=== PATIENT | male | born 1995 | race Caucasian/White ===

== ENCOUNTER → 2016-10-08 | Outpatient (CLI) | payer OTHER ==
--- NOTE | 2016-10-16 09:04 | REP ---
CT maxillofacial without contrast 10/08/2016 Indication: Chronic maxillary sinusitis Comparison: None Technique: 3 mm contiguous spiral axial sections performed through the nasal sinuses and the orbits without contrast. Coronal reconstructed images in bone algorithm are also provided for interpretation. Axial images are provided in bone and soft-tissue windows Findings: Paranasal sinuses are clear bilaterally. The nasal septum is midline. There is a moderate bony spur on the left side of the nasal septum with mild impression on the left inferior nasal turbinate. The infundibula are narrowed yet patent; nasal frontal ducts are patent bilaterally. The mastoid sinuses are clear Lies portions of the brain without ventriculomegaly mass effect or intracranial hemorrhage. Ocular globes extraocular muscles and optic nerves are symmetric in appearance Impression 1. Moderate left sided mid nasal septal spur. No evidence of nasal septal deviation. 2. Narrowing of the bilateral infundibula, yet patent bilaterally. Nasal frontal ducts are patent. 3. Paranasal sinuses and mastoid sinuses are clear bilaterally Signed by Fanny Martinez MD 10/16/2016 08:56 A
== END | disposition home or self-care (01) ==
LOC: M RAD 06:52
DX: J32.0 Chronic maxillary sinusitis (principal); J34.89 Other specified disorders of nose and nasal sinuses

== ENCOUNTER → 2016-12-25 | Day surgery (SDC) | payer OTHER ==
[~2016-12-25] VITALS: Ht 172.7 cm; Wt 70.3 kg
[~2016-12-25] MED LIST: DOXY-278 PO; DULO30CA PO; GLYCOPYRROLATE INJ 0.2 MG/ML 2 ML VIAL As Ordered ONE; IBUPROFEN 800 MG TAB PO PRN; LIDOCAINE 2% INJ 100 MG/5 ML SDV (FOR ANES.) As Ordered ONE; LIDOCAINE W/EPINEPHRINE 1% 20ML VIAL As Ordered ONE; LR 1,000 ML IV SCH; METHYLENE BLUE 0.5% (5MG/ML) 10 ML AMP (PROVAYBLUE)(Q9968 PER 1MG) As Ordered ONE; MIDAZOLAM INJ 2 MG/2 ML VIAL (J2250) As Ordered ONE; NEOSTIGMINE 1MG/ML 5 ML SYRINGE (J2710) As Ordered ONE; ONDANSETRON 4MG/2ML VIAL (J2405) As Ordered ONE; ONDANSETRON 4MG/2ML VIAL (J2405) IV PRN; OXYC1TAB23 PO; OXYMETAZOLINE NASAL SPRAY (AFRIN) As Ordered ONE; PERCOCET 5MG/325MG TAB As Ordered ONE; PERCOCET 5MG/325MG TAB PO PRN; PROPOFOL 200 MG/20 ML VIAL As Ordered ONE; ROCURONIUM BROMIDE 50 MG/5 ML VIAL As Ordered ONE; dexameTHASONE 4 MG/ML 1ML VIAL (J1100) As Ordered ONE; fentaNYL 100 MCG/2 ML INJECTION (J3010) As Ordered ONE; fentaNYL 100 MCG/2 ML INJECTION (J3010) IV PRN
[2016-12-25 13:35] VITALS: BP 147/65
--- NOTE | 2016-12-28 09:44 | RO ---
DATE OF PROCEDURE: 12/25/2016 PREOPERATIVE DIAGNOSES: 1. Nasal septal deviation. 2. Chronic rhinitis. POSTOPERATIVE DIAGNOSES: 1. Nasal septal deviation. 2. Chronic rhinitis. PROCEDURES: 1. Septoplasty. 2. Partial reduction inferior turbinates. SURGEON: Nura Mcmanus MD SELF PROPELLED HOT MIX ROLLER OPERATOR: ANESTHESIA: INDICATIONS: A 21-year-old with a long history of nasal obstruction and congestion unrelieved by medical therapy. DESCRIPTION OF PROCEDURE: Satisfactory general endotracheal anesthesia was administered, pharyngeal pack placed. Nose was prepared for surgery by placing cotton soaked pledgets with Afrin solution in the nasal cavity bilaterally. 1% xylocaine with 1:100,000 epinephrine was injected into the nasal septum and inferior turbinates. DATE OF PROCEDURE: PREOPERATIVE DIAGNOSES: Nasal obstruction secondary to deviated septum, hypertrophic turbinates. POSTOPERATIVE DIAGNOSES: Nasal obstruction secondary to deviated septum, hypertrophic turbinates. PROCEDURE: Septoplasty, partial reduction inferior turbinates. SURGEON: Dr. Nura Mcmanus SELF PROPELLED HOT MIX ROLLER OPERATOR: ANESTHESIA: General endotracheal. INDICATIONS: DESCRIPTION OF PROCEDURE: Satisfactory general endotracheal anesthesia administered. The nose was prepared for surgery by placing cotton-soaked pledgets with Afrin solution to nasal cavity bilaterally. 1% Xylocaine with 1:100,000 epinephrine was used to inject into the nasal septum and inferior turbinates. A Obed incision was made on the left side of the nose. A mucoperichondrial flap and envelope was created on the left side of the nasal septum and carried down to the junction of the bony and cartilaginous septum. This was then with an elevator, and an envelope was then created on the right side of the septum. A Laney scissors was used to make a cut high in the perpendicular plate in the midportion of the vomer, and a central segment of the bony septum was resected. Next, with the round knife on the Pierce elevator, a strip of cartilage was resected from the floor of the nose, mobilizing the quadrilateral cartilage and creating a swinging door. Then, a central segment of cartilaginous septum was resected, preserving a 1 cm dorsal and caudal strut. Double-action rongeur was used to take down deflected portions of the perpendicular plate, as well. Finally, the maxillary crest spur was taken down after elevating mucoperiosteum off both sides of it with a chisel. A segment of the resected cartilage was morselized and placed back into the septal envelope. The incision was closed using an interrupted #5-0 chromic suture. Then, a #4-0 plain suture was placed in a [id number] fashion through the two leaves of mucoperichondrium to appose them. Next, the inferior turbinates were medially infractured. A #15 blade was used to make an incision on the anterior tip of the inferior turbinate. With a Pierce elevator, a mucoperiosteal tunnel was created on the medial side of the turbinate. Then, the microdebrider with a 2.9 mm blade was inserted into the tunnel, and the underlying turbinate bone was weakened and partially resected using the microdebrider. Then, the turbinate was laterally outfractured. The posteroinferior tip of the turbinate was then cauterized with suction cautery. Completing the surgery, Fajardo splints were placed in the nose and then sewn to the columella with a #2-0 Prolene suture. The pharyngeal pack was removed, the throat was suctioned. The patient was then awakened, extubated, and sent to recovery in satisfactory condition. He will be discharged home with Percocet for pain, doxycycline 100 mg twice a day and he will be seen back in the office in three days for splint removal.
== END | disposition home or self-care (01) ==
LOC: M SDC 08:37
PROVIDERS: ATTEND Specialist
DX: J34.2 Deviated nasal septum (principal); J31.0 Chronic rhinitis; J34.3 Hypertrophy of nasal turbinates; F43.10 Post-traumatic stress disorder, unspecified; Z79.899 Other long term (current) drug therapy
CPT/HCPCS: 30520; 30802; 88300; 88305; J1100; J2250; J2405; J2710; J3010; Q9968

== ENCOUNTER 2016-12-26 12:20 | Emergency (ER) | payer OTHER ==
[~2016-12-26] VITALS: Ht 170.2 cm; Wt 76.2 kg
[~2016-12-26 12:20] MED LIST changes: -DOXY-278 PO; -GLYCOPYRROLATE INJ 0.2 MG/ML 2 ML VIAL As Ordered ONE; -IBUPROFEN 800 MG TAB PO PRN; -LIDOCAINE 2% INJ 100 MG/5 ML SDV (FOR ANES.) As Ordered ONE; -LIDOCAINE W/EPINEPHRINE 1% 20ML VIAL As Ordered ONE; -LR 1,000 ML IV SCH; -METHYLENE BLUE 0.5% (5MG/ML) 10 ML AMP (PROVAYBLUE)(Q9968 PER 1MG) As Ordered ONE; -MIDAZOLAM INJ 2 MG/2 ML VIAL (J2250) As Ordered ONE; -NEOSTIGMINE 1MG/ML 5 ML SYRINGE (J2710) As Ordered ONE; -ONDANSETRON 4MG/2ML VIAL (J2405) As Ordered ONE; -ONDANSETRON 4MG/2ML VIAL (J2405) IV PRN; -OXYC1TAB23 PO; -OXYMETAZOLINE NASAL SPRAY (AFRIN) As Ordered ONE; -PERCOCET 5MG/325MG TAB As Ordered ONE; -PERCOCET 5MG/325MG TAB PO PRN; -PROPOFOL 200 MG/20 ML VIAL As Ordered ONE; -ROCURONIUM BROMIDE 50 MG/5 ML VIAL As Ordered ONE; -dexameTHASONE 4 MG/ML 1ML VIAL (J1100) As Ordered ONE; -fentaNYL 100 MCG/2 ML INJECTION (J3010) As Ordered ONE; -fentaNYL 100 MCG/2 ML INJECTION (J3010) IV PRN
[2016-12-26 12:21] VITALS: BP 155/64
[2016-12-26] MEDS ORDERED: DOXY-278 PO (12:33)
[2016-12-26] MEDS ORDERED: OXYC1TAB23 PO (12:33)
[2016-12-26] MEDS ORDERED: SODIUM CHLORIDE NASAL 0.65% SPRAY BTL (OCEAN) SCH (21:00)
== END 2016-12-26 13:26 | disposition home or self-care (01) ==
LOC: M ED 13:08
DX: Z48.89 Encounter for other specified surgical aftercare (principal)

== ENCOUNTER 2017-05-25 11:38 | Inpatient (IN) | payer OTHER ==
[~2017-05-25] VITALS: Ht 172.7 cm; Wt 77.2 kg
[~2017-05-25 11:38] MED LIST changes: +DOXY-278 PO; +OXYC1TAB23 PO
[2017-05-25] MEDS ORDERED: HYDR1CAP25 PO (11:50)
[2017-05-25] MEDS ORDERED: ZOLP5TAB PO (11:50)
[2017-05-25] MEDS ORDERED: LUNE2TAB23 PO (11:50)
[2017-05-25] MEDS ORDERED: VENL37.598 PO (11:50)
[2017-05-25] MEDS ORDERED: MELA3TAB PO (11:50)
[2017-05-25] MEDS ORDERED: MELO15TA4 PO (11:50)
[2017-05-25 13:34] LABS: MEAN CORPUSCULAR HEMOGLOBIN 32.4 pg (27.0-33.0); MEAN CORPUSCULAR HGB CONC 35.7 g/dl (32.0-36.5); MEAN CORPUSCULAR VOLUME 90.7 fl (80.0-96.0); RED CELL DISTRIBUTION WIDTH 12.9 % (11.5-14.5); WHITE BLOOD COUNT 4.8 K/mm3 (4.0-10.0)
[2017-05-25 13:49] LABS: ALBUMIN 4.2 GM/DL (3.2-5.2); ALBUMIN/GLOBULIN RATIO 1.17 (1.00-1.93); ALKALINE PHOSPHATASE 86 U/L (45-117); ALT/SGPT 61 U/L (12-78); ANION GAP 6 MEQ/L (8-16); AST/SGOT 47 U/L (15-37); BILIRUBIN,DIRECT 0.1 MG/DL (0.0-0.2); BILIRUBIN,TOTAL 0.7 MG/DL (0.2-1.0); BLOOD UREA NITROGEN 13 MG/DL (7-18); CALCIUM LEVEL 9.4 MG/DL (8.5-10.1); CARBON DIOXIDE LEVEL 25 MEQ/L (21-32); CHLORIDE LEVEL 109 MEQ/L (98-107); CREATININE FOR GFR 1.23 MG/DL (0.70-1.30); GLOMERULAR FILTRATION RATE > 60.0 (>60); GLUCOSE, FASTING 98 MG/DL (70-105); POTASSIUM SERUM 4.4 MEQ/L (3.5-5.1); SODIUM LEVEL 140 MEQ/L (136-145); TOTAL PROTEIN 7.8 GM/DL (6.4-8.2)
[2017-05-25 13:53] LABS: METHADONE URINE NEGATIVE (NEGATIVE)
[2017-05-25] MEDS ORDERED: REFR0.1D OU (15:04)
[2017-05-25] MEDS ORDERED: FLUT1SPR2 (15:04)
[2017-05-25] MEDS ORDERED: MAALOX 30 ML SUSP *UDC PO PRN ×2 (15:30→17:30)
[2017-05-25] MEDS ORDERED: MOM 30ML SUSPENSION UDC PO PRN ×2 (15:30→17:30)
[2017-05-25] MEDS ORDERED: ACETAMINOPHEN TAB 650MG DOSE (2X325MG) PO PRN ×2 (15:30→17:30)
[2017-05-25 16:40] VITALS: BP 147/85
[2017-05-25] MEDS ORDERED: FLUTICASONE PROP 0.05% NASAL SPRAY 16 GM (FLONASE) PRN (17:30)
[2017-05-25] MEDS ORDERED: POLYVINYL ALCOHOL OPHTH SOLN 15 ML(LIQUITEARS) OU PRN (17:30)
[2017-05-26 06:55] VITALS: BP 132/73
[2017-05-26] MEDS ORDERED: VENLAFAXINE **XR** 37.5 MG CAPSULE PO SCH (09:00)
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
--- NOTE | 2017-05-26 15:46 | HPE ---
DATE OF ADMISSION: 05/25/2017 HISTORY OF PRESENT ILLNESS: Please refer to the psychiatric history and evaluation for further details on this admission. This examination and history is intended for medical issues which may need treatment, followup or consultation on this 22-year-old male. PRIMARY CARE PROVIDER: Isidro Johnson. ALLERGIES: No known allergies. SOCIAL HISTORY: He is . 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 EtOH: None. He smokes. Recreational drug use: None. PAST MEDICAL HISTORY: Chronic back, shoulder and knee pain. PAST SURGICAL HISTORY: [place] teeth extraction, septoplasty. FAMILY HISTORY: Noncontributory. HOME MEDICATIONS: - Refresh one drop in each eye daily - hydroxyzine pamoate 25 mg by mouth at bedtime - meloxicam 15 mg by mouth daily - Lunesta 2 mg by mouth at bedtime - fluticasone two sprays nares twice a day - venlafaxine 37.5 mg by mouth daily Continue meloxicam for chronic back and knee pain. No other acute medical issues.
[2017-05-26 18:00] VITALS: BP 120/82
[2017-05-26] MEDS: traZODone 50 MG TAB PO PRN (21:22)
[2017-05-26] MEDS: PRAZOSIN 1 MG CAP PO SCH (21:22)
[2017-05-27 06:13] VITALS: BP 133/68
[2017-05-27 07:58] LABS: ALBUMIN 4.2 GM/DL (3.2-5.2); ALBUMIN/GLOBULIN RATIO 1.2 (1.00-1.93); BILIRUBIN,TOTAL 0.9 MG/DL (0.2-1.0); CALCIUM LEVEL 9.2 MG/DL (8.5-10.1); CREATININE FOR GFR 1.55 MG/DL (0.70-1.30); GLOMERULAR FILTRATION RATE 59.4 (>60); POTASSIUM SERUM 4.7 MEQ/L (3.5-5.1); TOTAL PROTEIN 7.7 GM/DL (6.4-8.2)
[2017-05-27] MEDS: VENLAFAXINE **XR** 75MG CAPSULE PO SCH (08:08)
[2017-05-27] MEDS: MELOXICAM (MOBIC) 7.5 MG TAB PO SCH (16:32)
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
[2017-05-27 18:00] VITALS: BP 148/70
[2017-05-27] MEDS: PRAZOSIN 1 MG CAP PO SCH (20:52)
[2017-05-27] MEDS: traZODone 50 MG TAB PO PRN (20:52)
[2017-05-28 06:42] VITALS: BP 131/59
[2017-05-28] MEDS: VENLAFAXINE **XR** 75MG CAPSULE PO SCH (08:23)
[2017-05-28] MEDS: MELOXICAM (MOBIC) 7.5 MG TAB PO SCH (08:24)
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
[2017-05-28 18:00] VITALS: BP 138/70
[2017-05-28] MEDS: traZODone 50 MG TAB PO PRN (20:38)
[2017-05-28] MEDS: PRAZOSIN 1 MG CAP PO SCH (20:39)
[2017-05-29 06:00] VITALS: BP 133/59
[2017-05-29] MEDS: MELOXICAM (MOBIC) 7.5 MG TAB PO SCH (08:01)
[2017-05-29] MEDS: VENLAFAXINE **XR** 75MG CAPSULE PO SCH (08:01)
[2017-05-29 18:00] VITALS: BP 138/68
[2017-05-29] MEDS: traZODone 50 MG TAB PO PRN (20:35)
[2017-05-29] MEDS: PRAZOSIN 1 MG CAP PO SCH (20:36)
--- NOTE | 2017-05-30 04:34 | MHIPN ---
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 2. Posttraumatic stress disorder (PTSD). 3. Anxiety disorder, unspecified. SUBJECTIVE: Patient reports feeling better on medications, says he has been sleeping better, does not wake up in the middle of the night like he used to. He denies having recent flashbacks or nightmares, but he reports hypervigilance. He denies suicidal and homicidal ideation. OBJECTIVE: Patient is alert and oriented times three, cooperative with interview, with good eye contact, dressed in hospital clothes. His mood and affect are sad, anxious. His speech is coherent, fluid and spontaneous. His thought process is intact, his thought content is coherent. He denies homicidal and suicidal ideation, denies auditory and visual hallucinations and denies thought delusions. He is not responding to internal stimuli. His memory recent and remote are intact, his attention and concentration are fair, fund of knowledge is fair. Insight and judgment are fair. Impulse control has been good. ASSESSMENT: Patient has had a good response to medications. He has benefited from admission. He is attending groups and he says they are helping him. Will followup.
[2017-05-30 06:35] VITALS: BP 126/63
[2017-05-30] MEDS: MELOXICAM (MOBIC) 7.5 MG TAB PO SCH (09:42)
[2017-05-30] MEDS: VENLAFAXINE **XR** 75MG CAPSULE PO SCH (09:42)
[2017-05-30 18:00] VITALS: BP 160/85
[2017-05-30] MEDS: PRAZOSIN 1 MG CAP PO SCH (20:30)
[2017-05-30] MEDS: traZODone 50 MG TAB PO PRN (20:30)
[2017-05-31 06:00] VITALS: BP 146/65
[2017-05-31] MEDS: MELOXICAM (MOBIC) 7.5 MG TAB PO SCH (08:06)
[2017-05-31] MEDS: VENLAFAXINE **XR** 75MG CAPSULE PO SCH (08:06)
[2017-05-31] MEDS ORDERED: SODIUM CHLORIDE NASAL 0.65% SPRAY BTL (OCEAN) PRN (09:15)
--- NOTE | 2017-05-31 09:33 | IPNPDOC ---
Date Seen The patient was seen on 05/31/17. Progress Note HPI: 22yoM admitted to [facility] for depression, PTSD, being medically examined today. Patient complains of right ear discomfort and pressure. Denies sore throat. Denies rhinorrhea however reports that last evening he noticed a mild nosebleed. Denies postnasal drip. Denies cough. Denies any fevers, chills, weakness, fatigue, BLEDSOE, CP, SOB, cough, palpitations , abdominal pain, N/V/D or changes in bowel or bladder habits. PMH: Chronic back shoulder and knee pain chronic rhinitis PSH: [place] teeth extraction septoplasty. PE: GEN: 22yoM, appears stated age. Well-nourished, well developed. No acute distress. Alert and oriented x 3. Pleasant, interactive. HEENT: Normocephalic, atraumatic. Pupils are equal, round, and reactive to light. Extraocular movements are intact. No nystagmus appreciated. Sclera are nonicteric. Conjunctiva without injection. Nose midline. Anterior nasal septal area with erythema and irritation. There is no apparent rhinorrhea or drainage. EACs both patent BL. Left TMs visualized and fraser with good cone of light, no bulging or erythema. Purulent fluid noted behind the right TM, no bulging. No facial asymmetry. Moist mucous membranes. Dentition fair. Pharynx pink and moist , no exudate. Neck supple, trachea midline. No lymphadenopathy or thyromegaly appreciated. CHEST: Regular rate and rhythm, +S1, +S2 LUNGS: Clear to auscultation bilaterally. No wheezes, rales, or rhonchi. Breathing appears symmetric and easy. Patient is speaking in full sentences. No accessory muscle use. ABD: Round, soft, non-tender, non-distended. +Bowel sounds throughout. No rebound or guarding. No costovertebral angle tenderness. EXT: Pulses 2+ bilaterally dorsalis pedis and radial. No lower extremity edema appreciated. SKIN: [place], dry, warm. Capillary refill <2sec. No rashes. NEURO: Alert and oriented x 3. Cranial nerves III-XII are intact. No focal deficits appreciated. EKG: pending A&P: 22yoM admitted to [facility] for depression, PTSD 1. Psych. Plan per Psychiatry. Obtain baseline EKG to assure the safety of psychiatric medications as they can prolong the QT interval. 2. Rt OM. Amoxicillin 500mg TID x 10 days. 3. Nasal dryness/epistaxis. Saline nasal spray Q2 hrs as needed. 4. Chronic rhinitis. Pt continues with Flonase daily. 5. Follow up with PCP on discharge. 6. Chronic pain. Back/Shoulder/knee. Pt continues with Mobic 15 mg daily. 7. Staff member Bre MATTHEWS present throughout exam. VS, I&O, 24H, Fishbone Vital Signs/I&O Vital Signs Date Time Temp Pulse Resp B/P (MAP) Pulse Ox O2 Delivery O2 Flow Rate FiO2 05/31/17 06:00 98.1 61 19 146/65 (92) Room Air 05/26/17 18:00 100 Kimberly Bullard May 31, 2017 09:33
[2017-05-31] MEDS: AMOXICILLIN 500 MG CAP PO SCH ×3 (11:07→22:26)
--- NOTE | 2017-05-31 14:03 | MHIPNPDOC ---
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 Patient was seen and evaluated for his progress in inpatient psychiatry unit. On evaluation, patient reported that he has been feeling better and less depressed. He reports depression has improved with current treatment and he is also feeling more hopeful about the future. He denies any suicidal or homicidal ideations, intentions or plans. He also denies any psychotic symptoms including paranoid ideations, hallucinations. Eating and sleeping well. Compliant with medications and denies any side effects and wants to continue current treatment , Even when he gets discharged from the hospital. He was able to verbalize his plans about how to handle stresses at work and also communicate with this treatment providers outpatient about his feelings and possible worsening of symptoms. Discussed about IOP and trauma focused therapies including CBT and he is willing to work with outpatient providers to work further on the treatment. VITAL SIGNS: See below. CURRENT MEDICATIONS: See below. MENTAL STATUS EXAMINATION: 22yo male sitting in the chair, looks appropriate for the stated age, fair hygiene and grooming, normal psychomotor activities, no abnormal movements, cooperative with fair eye contact, speech is normal in rate, rhythm, amount and prosody, mood is 'fine', affect full and mood congruent, thought process is logical and goal directed, denies suicidal and homicidal ideations, denies hallucinations, no delusions elicited, aaox3, fair immediate, short term and mcfp memory, fair insight, judgement and impulse control DIAGNOSES: 1. 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 2., PTSD. 3., Anxiety disorder, unspecified. ASSESSMENT: Biological: Having no psychotic history in the family and no chronic medical illness will be protective for the patient Psychological patient seemed to have poor coping skills, poor defense mechanisms including splitting, projection and regression Social: current relationship with the girlfriend seems to be protective while stressful job - perpetuating factor Management: Continue current management, discharge planning in progress Vital Signs Vital Signs Date Time Temp Pulse Resp B/P (MAP) Pulse Ox O2 Delivery O2 Flow Rate FiO2 05/31/17 06:00 98.1 61 19 146/65 (92) Room Air 05/26/17 18:00 100 Allergies Coded Allergies: No Known Allergies (Unverified , 12/11/16) KATELYN HOPKINS MD May 31, 2017 14:03
--- NOTE | 2017-05-31 15:07 | ECGEPIP ---
Stationary ECG Study 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 No prior ECG available for comparison at the time of interpretation. Electronically Signed On 05-31-2017 15:07:27 EDT by Roberto Lewis
[2017-05-31 18:00] VITALS: BP 136/88
[2017-05-31] MEDS: traZODone 50 MG TAB PO PRN (20:36)
[2017-05-31 20:37] VITALS: BP 136/88
[2017-05-31] MEDS: PRAZOSIN 1 MG CAP PO SCH (20:37)
[2017-06-01] MEDS: AMOXICILLIN 500 MG CAP PO SCH ×2 (05:56→12:24)
[2017-06-01 06:50] VITALS: BP 125/60
[2017-06-01] MEDS: VENLAFAXINE **XR** 75MG CAPSULE PO SCH (08:14)
[2017-06-01] MEDS: MELOXICAM (MOBIC) 7.5 MG TAB PO SCH (08:15)
[2017-06-01] MEDS ORDERED: VENL150C43 PO (09:56)
[2017-06-01] MEDS ORDERED: TRAZO50TA PO (09:56)
[2017-06-01] MEDS ORDERED: PRAZ2CAP PO (09:56)
[2017-06-01] MEDS ORDERED: AMOX500C PO (09:56)
--- NOTE | 2017-06-01 17:10 | MHDSPDOC ---
[facility] Discharge Summary Discharge Summary DATE OF ADMISSION: May 25, 2017 at 15:23 DATE OF DISCHARGE: Jun 01, 2017 at 12:50 DISCHARGE DIAGNOSES: 1. Major depression without psychosis. 2., PTSD. 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 On evaluation, patient reported that he has been feeling depressed and anxiety for 1-1/2 years but recently his depression and anxiety are getting worse because anniversary of of his friend is coming up. 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 He still has to do more months of service for getting honorable discharge from that. He described the incidents off for his friend while he was sitting next to him. His friend was shot in [facility] in June 2015. This incidents was the starting point for his psychiatric illness as per patient and since then he has been feeling depressed and anxious. He also describes intrusive parts of that of his friend. Having nightmares at least once in the month about this. He reported that he is hyper- arousable and hypervigilant since the incidence and having difficulty in sleeping, even with the doses of sleep medications including Ambien up to 15 mg. Since then right after the incidence. He was not able to sleep for almost a week and had [place] psychiatrist [place]. In October [place]. He was [employer]. He reported that he is trying to avoid all to combat missions and deployment and also want to leave [employer] because of this incidence and intrusive parts, but has to work 2 more months. His Depression consist of depressed mood, exhorted, not enough energy, difficulty falling sleep, 5hrs sleep w meds, guilty feeling about of the friend, no appetite problems, sexual problems, high anxiety, feelings of helpless, hopeless at times, not able to control emotions, crying daily, not able to function His Anxiety consist of stomach upset, SOB, upset mind, paralysed- numbness, mostly triggered at the work, at times without triggers, panic attacks 2-3 times a weeks. Denies paranoia, hallucinations, worried that he has more work that others in the team. Yesterday thinking about letting the steering wheel go while driving the car and not getting the control back of the car and crashed the car to his own that , but did not act on it. Patient is future oriented, wants to live for GF and want to transition to single life and job. PAST PSYCHIATRIC HISTORY:started seeing psych in Jul 2015, tried on Zoloft, trazodone, Prazosin, Celexa, Ativan, Hydroxyzine, Effexor XR 37.5mg ALLERGIES: Please see below. FAMILY PSYCHIATRIC HISTORY: Psych: none reported Medical: heart attack, HTN, DM- father, maternal aunt- cancer Substance abuse- none. SOCIAL HISTORY: HS done, with ex after one year of marriage. Currently in the relationship for about a year SUBSTANCE ABUSE HISTORY: Denies any substance use. PAST MEDICAL/SURGICAL HISTORY: 1.. Denies any medical problems ever in his life. Denies any surgical procedures." CONSULTANTS INVOLVED: Medical evaluation and treatment TREATMENT AND PROGRESS ON THE UNIT :. Patient was admitted to inpatient psychiatry unit and started on medications of Effexor XR, trazodone and prazosin. Medications were titrated up. Effexor went up to 150 mg a day and prazosin 2 mg at at bedtime patient was compliant with the medications and denied any side effects. Patient responded well to the treatment. HOSPITAL COURSE:. Initially after admission, patient continued to have constricted affect and suicidal ideations with limited participation in the unit activities and interaction with others in the unit, but with treatment. He responded well and was able to have improvement in his mood. Suicidal ideations faded away. He went for unit activities Soon after. Patient did not need any IM medications, restraints or constant observation. DISCHARGE ASSESSMENT: Patient reported improvement in the mood and able to sleep better. He denied any suicidal or homicidal ideations, intentions or plans. He also denied any psychotic symptoms. He was willing to continue to treatment outpatient. 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 The amount of time spent in the coordination of care for this patient was approximately 30 minutes. Vital Signs/I&Os Vital Signs Date Time Temp Pulse Resp B/P (MAP) Pulse Ox O2 Delivery O2 Flow Rate FiO2 06/01/17 06:50 97.6 59 16 125/60 (81) Room Air 05/26/17 18:00 100 Medications Scheduled Amoxicillin (Amoxicillin) 500 Mg Cap, 500 MG PO Q8H for ear infection for 9 Days , #27 Carboxymethylcellulose Sodium (Refresh Plus) 1 Ea Dilia, 1 DROP OU DAILY, ( Reported) Fluticasone Propionate (Fluticasone Propionate 0.05%) 120 Somers/16 Gm Naspr, 2 SPRAY NA BID, (Reported) PER NOSTRIL Meloxicam (Meloxicam) 15 Mg Tab, 15 MG PO DAILY, (Reported) Prazosin Hcl (Prazosin HCl) 2 Mg Cap, 2 MG PO QHS for PTSD nightmares for 7 Days , #7 Venlafaxine Hydrochloride (Venlafaxine HCl ER) 150 Mg Cap, 150 MG PO QAM for depression for 7 Days, #7 Scheduled PRN Trazodone HCl (Trazodone HCl) 50 Mg Tab, 50 MG PO QHSP PRN for INSOMNIA for 7 Days, #7 Allergies Coded Allergies: No Known Allergies (Unverified , 12/11/16) KATELYN HOPKINS MD Jun 01, 2017 17:10
== END 2017-06-01 12:50 | disposition home or self-care (01) | DRG 881 ==
LOC: M ED 11:38 → M ED INP 15:23 → M PSY 16:35
PROVIDERS: ADMIT Psychiatry & Neurology Psychiatry; ATTEND Psychiatry & Neurology Psychiatry
DX: F32.9 Major depressive disorder, single episode, unspecified (principal); R45.851 Suicidal ideations; F43.10 Post-traumatic stress disorder, unspecified; Z79.899 Other long term (current) drug therapy; M54.5 Low back pain; F17.200 Nicotine dependence, unspecified, uncomplicated; G89.29 Other chronic pain; J31.0 Chronic rhinitis